=== PATIENT | male | born 1980 | race Two or more races ===

== ENCOUNTER 2017-07-31 00:39 | Emergency (ER) | END 2017-07-31 06:45 | disposition home or self-care (01) ==

== ENCOUNTER 2018-08-29 15:49 | Emergency (ER) | payer MEDICAID ==
[~2018-08-29] VITALS: Ht 190.5 cm; Wt 65.0 kg
[~2018-08-29 15:49] MED LIST: ACET500C5 PO; AMOX1TAB10 PO; TRAM50TA2 PO
[2018-08-29 15:52] VITALS: Ht 190.5 cm; Wt 65.0 kg
[2018-08-29] MEDS ORDERED: ONDANSETRON 4 MG INJ IV STA (16:03)
[2018-08-29] MEDS ORDERED: SOD CHLORIDE 0.9% 1,000 ML IV STA (16:03)
[2018-08-29] MEDS ORDERED: morphine 4 MG/ML VIAL IV STA (16:03)
[2018-08-29] MEDS ORDERED: IBUP-1542 PO (17:28)
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
[2018-08-29 18:33] VITALS: BP 120/75; PULSE 92; RESP 12
== END 2018-08-29 19:00 | disposition home or self-care (01) ==
LOC: E/R 15:49
DX: S02.2XXA Fracture of nasal bones, initial encounter for closed fracture (principal); S63.92XA Sprain of unspecified part of left wrist and hand, initial encounter; S02.82XA Fracture of other specified skull and facial bones, left side, initial encounter for closed fracture; S00.12XA Contusion of left eyelid and periocular area, initial encounter; R40.2142 Coma scale, eyes open, spontaneous, at arrival to emergency department; R40.2362 Coma scale, best motor response, obeys commands, at arrival to emergency department; R40.2252 Coma scale, best verbal response, oriented, at arrival to emergency department; V03.10XA Pedestrian on foot injured in collision with car, pick-up truck or van in traffic accident, initial encounter
CPT/HCPCS: 29125; 70450; 70486; 71045; 73090; 73110; 73130; 80053; 80307; 85025; 85610; 85730; J7030; Z7502